=== PATIENT | male | born 1995 | race Caucasian/White ===

== ENCOUNTER 2019-04-20 12:12 | Emergency (ER) | payer OTHER ==
[~2019-04-20] VITALS: Ht 182.9 cm; Wt 147.5 kg
--- NOTE | 2019-04-20 13:15 | REP ---
Right ankle four views : There is no fracture or dislocation. Mineralization and joint spaces are normal. There are no calcifications or foreign bodies. Impression: Negative right ankle . Electronically Signed by Lonnie Pantoja MD 04/20/2019 01:07 P
[2019-04-20] MEDS ORDERED: IBUP-1022 PO (13:21)
[2019-04-20 13:39] VITALS: BP 153/99
== END 2019-04-20 13:41 | disposition home or self-care (01) ==
LOC: M ED 12:12
DX: S93.401A Sprain of unspecified ligament of right ankle, initial encounter (principal); X50.1XXA Overexertion from prolonged static or awkward postures, initial encounter; Y92.89 Other specified places as the place of occurrence of the external cause; Y93.9 Activity, unspecified; Y99.0 Civilian activity done for income or pay; Z88.0 Allergy status to penicillin